=== PATIENT | male | born 1960 | race Caucasian/White ===

== ENCOUNTER → 2018-05-10 | Emergency (ER) | payer MEDICAID ==
--- NOTE | 2018-05-10 10:03 | Emergency Room Report ---
History of Present Illness General Chief Complaint: To Be Triaged Medical Decision Making Diagnostic Impression: Primary Impression: Patient left without being seen ER Course Patient left without being seen Status: unchanged Disposition: LEFT W/OUT BEING SEEN Condition: Unknown Referrals: [facility] [place] (PCP) Michael Chapin MD May 10, 2018 10:03
== END | disposition left against medical advice (07) ==
LOC: EMR 08:45
DX: Z53.21 Procedure and treatment not carried out due to patient leaving prior to being seen by health care provider (principal)